=== PATIENT | female | born 1985 | race Caucasian/White ===

== ENCOUNTER 2017-04-10 14:38 | Outpatient (CLI) | payer OTHER ==
[2017-04-10 14:57] LABS: DAU SCREEN DISCLAIMER
[2017-04-10 15:30] LABS: ASPARTATE AMINO TRANSFERASE 23 U/L (15-37); BLOOD UREA NITROGEN 7 mg/dL (7-18)
== END 2017-04-10 16:25 | disposition home or self-care (01) ==
LOC: LDOP 14:38
PROVIDERS: ATTEND Student in an Organized Health Care Education/Training Program
DX: O26.893 Other specified pregnancy related conditions, third trimester (principal); R10.9 Unspecified abdominal pain; O62.9 Abnormality of forces of labor, unspecified; Z3A.00 Weeks of gestation of pregnancy not specified
CPT/HCPCS: 36415; 59025; 80053; 80307; 81003; 85025; 99211; G0463

== ENCOUNTER 2017-06-01 10:55 | Inpatient (IN) | payer OTHER ==
[~2017-06-01] VITALS: Ht 160 cm; Wt 121.4 kg
[2017-06-01 11:00] VITALS: BP 190/97
[2017-06-01 12:14] LABS: HEMATOCRIT 33.9 % (34.6-47.8); HEMOGLOBIN 11.1 g/dL (11.7-16.4); WHITE BLOOD COUNT 7.8 x10^3/uL (3.4-10)
[2017-06-01 12:20] LABS: ASPARTATE AMINO TRANSFERASE 18 U/L (15-37); BLOOD UREA NITROGEN 7 mg/dL (7-18)
[2017-06-01] MEDS: D5%-LACTATED RINGERS 1,000 ML IV SCH ×2 (12:23→20:23)
[2017-06-01] MEDS ORDERED: OXYTOCIN 30U/ 0.9% NaCL 500ML 500 ML IV ONE (12:23)
[2017-06-01] MEDS ORDERED: LABETALOL 5MG/ML, 20ML ONE (12:29)
[2017-06-01] MEDS ORDERED: MISOPROSTOL 25 MCG TABLET ONE ×2 (12:29→19:19)
[2017-06-01] MEDS ORDERED: ACETAMINOPHEN 325 MG TABLET ONE ×3 (12:29→21:54)
[2017-06-01] MEDS ORDERED: FENTANYL PF 100 MCG/2ML IV PRN (12:30)
[2017-06-01] MEDS ORDERED: FENTANYL PF 100 MCG/2ML IVPush PRN (12:30)
[2017-06-01] MEDS ORDERED: SODIUM CHLORIDE FLUSH 10ML SYR IVF PRN (12:30)
[2017-06-01] MEDS: LACTATED RINGERS 1,000 ML IV SCH ×2 (13:03→21:58)
[2017-06-01] MEDS: LABETALOL 5MG/ML, 20ML IVPush PRN (13:05)
[2017-06-01] MEDS: MISOPROSTOL 25 MCG TABLET VG PRN ×2 (13:15→19:35)
[2017-06-01] MEDS: ACETAMINOPHEN 325 MG TABLET PO PRN ×2 (13:32→18:03)
[2017-06-01] MEDS ORDERED: OXYTOCIN 30U/ 0.9% NaCL 500ML 500 ML ONE (13:50)
[2017-06-01] MEDS ORDERED: MAGNESIUM SULF. PMX 20GM/500ML 500 ML IV ONE ×2 (14:08→21:54)
[2017-06-01] MEDS ORDERED: MAGNESIUM SULFATE PMX 4GM/100M 100 ML IVPB ONE (14:30)
[2017-06-01] MEDS ORDERED: ALBUTEROL INHALER INH PRN (17:00)
[2017-06-01] MEDS ORDERED: NEWBORN KIT ONE (17:35)
[2017-06-01] MEDS ORDERED: albuterol sulfate INH (18:33)
[2017-06-01] MEDS ORDERED: iron PO (18:33)
[2017-06-01] MEDS ORDERED: PNV11TAB5 PO (18:33)
[2017-06-01] MEDS ORDERED: HYDROcodone/APAP 5/325 TABLET ONE (22:07)
[2017-06-01] MEDS ORDERED: ONDANSETRON 2MG/ML, 2ML ONE (22:08)
[2017-06-01] MEDS: ONDANSETRON 2MG/ML, 2ML IVPush PRN (22:12)
[2017-06-01] MEDS: MAGNESIUM SULF. PMX 20GM/500ML 500 ML IV PRN (22:19)
[2017-06-01] MEDS ORDERED: CALCIUM CARBONATE 500 MG TAB.CHEW PO PRN (22:30)
[2017-06-01] MEDS ORDERED: TERBUTALINE 1 MG/ML, 1ML IVPush PRN (22:30)
[2017-06-01] MEDS ORDERED: METOCLOPRAMIDE 5 MG/ML, 2ML IVPush PRN (22:30)
[2017-06-01] MEDS ORDERED: SODIUM CITRATE/CITRIC ACID 30 ML UDC PO PRN (22:30)
[2017-06-01] MEDS ORDERED: HYDROcodone/APAP 5/325 TABLET PO ONE ×3 (22:30)
[2017-06-02] MEDS ORDERED: MISOPROSTOL 25 MCG TABLET ONE (00:45)
[2017-06-02] MEDS: MISOPROSTOL 25 MCG TABLET VG PRN (00:55)
[2017-06-02] MEDS ORDERED: LABETALOL 5MG/ML, 20ML ONE (03:10)
[2017-06-02] MEDS: LABETALOL 5MG/ML, 20ML IVPush PRN ×2 (03:14→20:03)
[2017-06-02] MEDS ORDERED: HYDROcodone/APAP 5/325 TABLET ONE (04:00)
[2017-06-02] MEDS ORDERED: ONDANSETRON 2MG/ML, 2ML ONE (04:00)
[2017-06-02] MEDS ORDERED: HYDROcodone/APAP 5/325 TABLET PO PRN (04:00)
[2017-06-02] MEDS: ONDANSETRON 2MG/ML, 2ML IVPush PRN (04:03)
[2017-06-02 04:21] LABS: HEMATOCRIT 33.9 % (34.6-47.8); HEMOGLOBIN 11.3 g/dL (11.7-16.4); WHITE BLOOD COUNT 7.4 x10^3/uL (3.4-10)
[2017-06-02 04:22] LABS: BLOOD UREA NITROGEN 7 mg/dL (7-18)
[2017-06-02] MEDS: D5%-LACTATED RINGERS 1,000 ML IV SCH ×3 (04:23→20:23)
[2017-06-02 04:25] LABS: ASPARTATE AMINO TRANSFERASE 19 U/L (15-37)
[2017-06-02] MEDS ORDERED: MAGNESIUM SULF. PMX 20GM/500ML 500 ML IV ONE ×2 (08:09→17:21)
[2017-06-02] MEDS: MAGNESIUM SULF. PMX 20GM/500ML 500 ML IV PRN ×2 (08:22→18:24)
[2017-06-02] MEDS ORDERED: OXYTOCIN 30U/ 0.9% NaCL 500ML 500 ML IV PRN (09:52)
[2017-06-02] MEDS: LACTATED RINGERS 1,000 ML IV SCH ×2 (10:55→20:23)
[2017-06-02] MEDS ORDERED: FENTANYL PF 100 MCG/2ML ONE (20:02)
[2017-06-02] MEDS ORDERED: ZOLPIDEM 10MG TABLET PO PRN (22:00)
[2017-06-02] MEDS ORDERED: MEPERIDINE/PF 100 MG/ML IM PRN (22:00)
[2017-06-02] MEDS ORDERED: ZOLPIDEM 10MG TABLET ONE (23:03)
[2017-06-03] MEDS: D5%-LACTATED RINGERS 1,000 ML IV SCH ×3 (04:23→20:23)
[2017-06-03] MEDS: LACTATED RINGERS 1,000 ML IV SCH ×4 (04:23→20:23)
[2017-06-03] MEDS ORDERED: MAGNESIUM SULF. PMX 20GM/500ML 500 ML IV ONE (04:29)
[2017-06-03] MEDS: MAGNESIUM SULF. PMX 20GM/500ML 500 ML IV PRN (04:35)
[2017-06-03 07:10] LABS: BLOOD UREA NITROGEN 7 mg/dL (7-18); HEMATOCRIT 34.5 % (34.6-47.8); HEMOGLOBIN 11.5 g/dL (11.7-16.4); WHITE BLOOD COUNT 5.9 x10^3/uL (3.4-10)
[2017-06-03 07:14] LABS: ASPARTATE AMINO TRANSFERASE 17 U/L (15-37)
[2017-06-03 07:56] VITALS: BP 134/94
[2017-06-03] MEDS ORDERED: MISOPROSTOL 200 MCG TABLET ONE (07:59)
[2017-06-03] MEDS ORDERED: MISOPROSTOL 25 MCG TABLET ONE (07:59)
[2017-06-03] MEDS ORDERED: MISOPROSTOL 100 MCG TABLET VG PRN (08:30)
[2017-06-03] MEDS ORDERED: CALCIUM CARBONATE 500 MG TAB.CHEW ONE (22:13)
[2017-06-03] MEDS ORDERED: LABETALOL 5MG/ML, 20ML ONE (22:13)
[2017-06-03] MEDS: LABETALOL 5MG/ML, 20ML IVPush PRN (22:15)
[2017-06-03] MEDS ORDERED: FENTANYL/BUPIV./NS/PF 250 ML EPIDCONT ONE (23:07)
[2017-06-03] MEDS ORDERED: BUPIVACAINE 0.25% ONE (23:08)
[2017-06-03] MEDS ORDERED: LIDOCAINE/PF 1.5%-EPI 1:200K, 30ML ONE ×2 (23:08)
[2017-06-04] MEDS ORDERED: FENTANYL/BUPIV./NS/PF 250 ML EPIDCONT SCH (00:17)
[2017-06-04] MEDS ORDERED: NALOXONE 0.4 MG/ML, 1ML IVPush PRN (00:30)
[2017-06-04] MEDS ORDERED: EPHEDRINE 50 MG/ML, 1ML IVPush PRN (00:30)
[2017-06-04] MEDS ORDERED: LACTATED RINGERS 1,000 ML IVBOLUS PRN (00:30)
[2017-06-04] MEDS: LACTATED RINGERS 1,000 ML IV SCH ×7 (04:23→22:24)
[2017-06-04] MEDS: D5%-LACTATED RINGERS 1,000 ML IV SCH ×2 (04:23→12:23)
[2017-06-04] MEDS ORDERED: LACTATED RINGERS 1,000 ML IV SCH ×3 (14:02→14:24)
[2017-06-04] MEDS ORDERED: OXYTOCIN 30U/ 0.9% NaCL 500ML 500 ML IV SCH ×2 (14:02→14:24)
[2017-06-04] MEDS ORDERED: METOCLOPRAMIDE 5 MG/ML, 2ML ONE ×2 (14:06→14:20)
[2017-06-04] MEDS ORDERED: SODIUM CITRATE/CITRIC ACID 30 ML UDC ONE ×2 (14:06→14:20)
[2017-06-04] MEDS ORDERED: SODIUM BICARBONATE 4.2%, 5ML ONE (14:20)
[2017-06-04] MEDS ORDERED: KETOROLAC 30 MG/1 ML ONE (14:20)
[2017-06-04] MEDS ORDERED: ONDANSETRON 2MG/ML, 2ML ONE (14:20)
[2017-06-04] MEDS ORDERED: LABETALOL 5MG/ML 40ML VIAL ONE (14:20)
[2017-06-04] MEDS ORDERED: OXYTOCIN 10 UNITS/ML, 1ML ONE ×2 (14:20)
[2017-06-04] MEDS ORDERED: DEXAMETHASONE 4 MG/ML, 1ML ONE (14:20)
[2017-06-04] MEDS ORDERED: CEFAZOLIN 1,000 MG ONE (14:20)
[2017-06-04] MEDS ORDERED: BUPIVACAINE 0.25% ONE (14:20)
[2017-06-04] MEDS ORDERED: LIDOCAINE 2%, 20ML ONE (14:20)
[2017-06-04] MEDS ORDERED: MISOPROSTOL 200 MCG TABLET PR PRN (14:30)
[2017-06-04] MEDS ORDERED: DIPH,PERTUSS(ACELL),TET VAC/PF NC IM-VACC PRN (14:30)
[2017-06-04] MEDS ORDERED: CALCIUM CARBONATE 500 MG TAB.CHEW PO PRN (14:30)
[2017-06-04] MEDS ORDERED: MEPERIDINE/PF 25MG/0.5ML IM PRN (14:30)
[2017-06-04] MEDS ORDERED: ONDANSETRON 2MG/ML, 2ML IV PRN (14:30)
[2017-06-04] MEDS: KETOROLAC 30 MG/1 ML IV SCH ×2 (14:30→20:18)
[2017-06-04] MEDS ORDERED: SODIUM CITRATE/CITRIC ACID 30 ML UDC PO ONE (14:30)
[2017-06-04] MEDS ORDERED: OXYcodone IR 5MG TABLET PO PRN (14:30)
[2017-06-04] MEDS ORDERED: MEPERIDINE/PF 50 MG/ML IM PRN (14:30)
[2017-06-04] MEDS ORDERED: morphine SULFATE 10 MG/ML, 1ML IVPush PRN ×2 (14:30)
[2017-06-04] MEDS ORDERED: FENTANYL PF 100 MCG/2ML ONE (14:41)
[2017-06-04] MEDS ORDERED: MIDAZOLAM 1 MG/ML, 2ML IV PRN (16:00)
[2017-06-04] MEDS ORDERED: OXYcodone 5 MG/5 ML ORAL.SOL UDC PO PRN (16:00)
[2017-06-04] MEDS ORDERED: FENTANYL PF 100 MCG/2ML IV PRN (16:00)
[2017-06-04] MEDS ORDERED: HYDROmorphone 1 MG/ML, 1ML IV PRN (16:00)
[2017-06-04] MEDS ORDERED: HYDROcodone/APAP 7.5-325MG/15ML UDC PO PRN (16:00)
[2017-06-04] MEDS ORDERED: MEPERIDINE/PF 25MG/0.5ML IVPush PRN (16:00)
[2017-06-04] MEDS ORDERED: hydrALAzine 20 MG/ML, 1ML IV PRN (16:00)
[2017-06-04] MEDS ORDERED: ONDANSETRON 2MG/ML, 2ML IVPush PRN (16:00)
[2017-06-04] MEDS ORDERED: LABETALOL 5MG/ML, 20ML IV PRN (16:00)
[2017-06-04] MEDS ORDERED: ALBUTEROL SULFATE 2.5 MG/3 ML NPPB PRN (16:00)
[2017-06-04] MEDS ORDERED: PROMETHAZINE 25 MG/ML, 1ML IV PRN (16:00)
[2017-06-04] MEDS ORDERED: HYDROmorphone 1 MG/ML, 1ML ONE (16:29)
[2017-06-04] MEDS ORDERED: OXYTOCIN 30U/ 0.9% NaCL 500ML 500 ML ONE (16:41)
[2017-06-04 17:30] VITALS: BP 151/102
[2017-06-04] MEDS: OXYcodone/APAP 5/325MG TABLET PO PRN (17:47)
[2017-06-04 19:30] VITALS: BP 150/92
[2017-06-05 00:52] VITALS: BP 140/93
[2017-06-05] MEDS: OXYcodone/APAP 5/325MG TABLET PO PRN ×5 (01:25→21:01)
[2017-06-05] MEDS: DOCUSATE 100 MG CAPSULE PO SCH ×3 (01:25→21:01)
[2017-06-05] MEDS: KETOROLAC 30 MG/1 ML IV SCH ×3 (02:42→08:29)
[2017-06-05 03:50] VITALS: BP 143/97
[2017-06-05 05:55] LABS: HEMATOCRIT 30.7 % (34.6-47.8); HEMOGLOBIN 10.2 g/dL (11.7-16.4); WHITE BLOOD COUNT 11.9 x10^3/uL (3.4-10)
[2017-06-05] MEDS: LACTATED RINGERS 1,000 ML IV SCH ×3 (06:24→22:24)
[2017-06-05 06:50] VITALS: BP 142/88
[2017-06-05] MEDS: PRENATAL VIT/IRON/FA 1 EACH TABLET PO SCH (08:27)
[2017-06-05] MEDS: IBUPROFEN 600 MG TABLET PO PRN (08:31)
[2017-06-05] MEDS ORDERED: PANTOPROZOLE 40MG TABLET PO SCH (11:30)
[2017-06-05 11:45] VITALS: BP 147/93
[2017-06-05] MEDS: SIMETHICONE 80 MG CHEW TAB PO PRN (12:40)
[2017-06-05 21:20] VITALS: BP 147/94
[2017-06-06] MEDS: IBUPROFEN 600 MG TABLET PO PRN ×4 (01:25→21:48)
[2017-06-06] MEDS: OXYcodone IR 5MG TABLET PO PRN ×3 (01:26→19:31)
[2017-06-06] MEDS: OXYcodone/APAP 5/325MG TABLET PO PRN (06:04)
[2017-06-06] MEDS: LACTATED RINGERS 1,000 ML IV SCH (06:13)
[2017-06-06 06:45] VITALS: BP_SYST 161; BP_SYST 165; BP_DIAS 103
[2017-06-06] MEDS: PRENATAL VIT/IRON/FA 1 EACH TABLET PO SCH (08:30)
[2017-06-06] MEDS: DOCUSATE 100 MG CAPSULE PO SCH ×2 (08:30→19:31)
[2017-06-06] MEDS: NEXIUM 20 MG HOMEMEDPO SCH (09:00)
[2017-06-06] MEDS ORDERED: NIFE30TA2 PO (10:08)
[2017-06-06] MEDS ORDERED: OXYC-302 PO (10:10)
[2017-06-06] MEDS ORDERED: IBUP-1222 PO (10:11)
[2017-06-06] MEDS ORDERED: DOCU-30 PO (10:12)
[2017-06-06] MEDS: niFEDipine ER 30 MG TABLET.ER PO SCH (10:15)
[2017-06-06 15:00] VITALS: BP 142/93
[2017-06-06 20:40] VITALS: BP 151/106
[2017-06-06] MEDS ORDERED: ACETAMINOPHEN 325 MG TABLET PO PRN (21:00)
[2017-06-06] MEDS: SIMETHICONE 80 MG CHEW TAB PO PRN (21:00)
[2017-06-06 21:45] VITALS: BP 148/100
[2017-06-07] MEDS: OXYcodone IR 5MG TABLET PO PRN ×6 (00:07→21:39)
[2017-06-07 00:30] VITALS: BP 136/91
[2017-06-07] MEDS: IBUPROFEN 600 MG TABLET PO PRN ×3 (04:26→18:26)
[2017-06-07] MEDS: SIMETHICONE 80 MG CHEW TAB PO PRN (04:26)
[2017-06-07 04:30] VITALS: BP 146/100
[2017-06-07 08:15] VITALS: BP 151/104
[2017-06-07] MEDS: niFEDipine ER 30 MG TABLET.ER PO SCH (08:27)
[2017-06-07] MEDS: PRENATAL VIT/IRON/FA 1 EACH TABLET PO SCH (08:28)
[2017-06-07] MEDS: DOCUSATE 100 MG CAPSULE PO SCH ×2 (08:28→20:59)
[2017-06-07] MEDS: NEXIUM 20 MG HOMEMEDPO SCH (09:00)
[2017-06-07 12:00] VITALS: BP 145/92
[2017-06-07 16:30] VITALS: BP 140/90
[2017-06-07 20:50] VITALS: BP 138/90
[2017-06-07] MEDS: LABETALOL 200 MG TABLET PO SCH (21:39)
[2017-06-08] MEDS: IBUPROFEN 600 MG TABLET PO PRN ×2 (00:13→06:35)
[2017-06-08 00:21] VITALS: BP 132/86
[2017-06-08] MEDS: OXYcodone IR 5MG TABLET PO PRN ×2 (02:43→07:28)
[2017-06-08 05:00] VITALS: BP 134/83
[2017-06-08] MEDS: PRENATAL VIT/IRON/FA 1 EACH TABLET PO SCH (07:28)
[2017-06-08] MEDS: DOCUSATE 100 MG CAPSULE PO SCH (07:28)
[2017-06-08 07:30] VITALS: BP 137/91
[2017-06-08] MEDS ORDERED: LABE200T3 PO (08:35)
[2017-06-08] MEDS ORDERED: LABETALOL 200 MG TABLET PO SCH (09:00)
[2017-06-08] MEDS: LABETALOL 200 MG TABLET PO SCH (09:56)
== END 2017-06-08 11:30 | disposition home or self-care (01) | DRG 765 ==
LOC: LDOP 10:55 → LDIP 12:49 → 2NW 06-04 17:07
PROVIDERS: ADMIT Student in an Organized Health Care Education/Training Program; ATTEND Student in an Organized Health Care Education/Training Program
PROC: 10D00Z1 Extraction of Products of Conception, Low, Open Approach (ICD-10-PCS; principal; 2017-06-04)
DX: O11.4 Pre-existing hypertension with pre-eclampsia, complicating childbirth (principal); Q79.0 Congenital diaphragmatic hernia; O99.354 Diseases of the nervous system complicating childbirth; Z68.42 Body mass index [BMI] 45.0-49.9, adult; O99.214 Obesity complicating childbirth; E66.9 Obesity, unspecified; O16.4 Unspecified maternal hypertension, complicating childbirth; G47.33 Obstructive sleep apnea (adult) (pediatric); G47.419 Narcolepsy without cataplexy; J45.30 Mild persistent asthma, uncomplicated; K57.30 Diverticulosis of large intestine without perforation or abscess without bleeding; O99.62 Diseases of the digestive system complicating childbirth; O43.193 Other malformation of placenta, third trimester; O61.9 Failed induction of labor, unspecified; O62.0 Primary inadequate contractions; O99.52 Diseases of the respiratory system complicating childbirth; Z81.1 Family history of alcohol abuse and dependence; Z81.8 Family history of other mental and behavioral disorders; Z37.0 Single live birth; Z3A.37 37 weeks gestation of pregnancy; Z82.0 Family history of epilepsy and other diseases of the nervous system; Z88.8 Allergy status to other drugs, medicaments and biological substances
CPT/HCPCS: 36415; 80053; 81001; 81003; 82248; 82570; 83735; 84156; 84550; 85025; 86850; 86900; J0690; J1100; J1170; J1885; J2405; J3010; J3490; J2270; J2590; J2765; J3475; J7120